=== PATIENT | female | born 1955 | race Two or more races ===

== ENCOUNTER 2017-10-08 13:42 | Emergency (ER) | payer SELFPAY ==
[~2017-10-08] VITALS: Ht 154.9 cm; Wt 67.0 kg
[2017-10-08 14:13] VITALS: BP 115/117
[2017-10-08] MEDS ORDERED: CEFTRIAXONE 1,000 MG ONE (14:24)
[2017-10-08] MEDS ORDERED: CEFTRIAXONE 1,000 MG IM ONE (14:30)
== END 2017-10-08 14:54 | disposition home or self-care (01) ==
LOC: ED 14:47
DX: L03.116 Cellulitis of left lower limb (principal)
CPT/HCPCS: 96372; 99283; J0696

== ENCOUNTER 2017-10-10 09:29 | Emergency (ER) | payer OTHER ==
[~2017-10-10] VITALS: Ht 154.9 cm; Wt 64.4 kg
[2017-10-10 09:31] VITALS: BP 142/82
== END 2017-10-10 10:15 | disposition home or self-care (01) ==
LOC: ED 10:09
DX: L03.116 Cellulitis of left lower limb (principal)
CPT/HCPCS: 99281